=== PATIENT | male | born 1945 | race Caucasian/White ===

== ENCOUNTER 2024-11-06 14:10 | Outpatient (AMB) | payer MEDICARE, SELFPAY | END 2024-11-06 14:21 | disposition home or self-care (01) | PROVIDERS: Visit Provider Registered Nurse Emergency | DX: J30.89 Other allergic rhinitis (principal) | CPT/HCPCS: 95117; 95165 ==

== ENCOUNTER 2024-11-26 10:29 | Outpatient (AMB) | payer MEDICARE, SELFPAY | END 2024-11-26 10:50 | disposition home or self-care (01) | LOC: HO.HMGAL 10:29 | PROVIDERS: Visit Provider Registered Nurse Emergency | DX: J30.89 Other allergic rhinitis (principal) | CPT/HCPCS: 95117; 95165 ==

== ENCOUNTER 2024-12-12 10:46 | Outpatient (AMB) | payer MEDICARE, SELFPAY | END 2024-12-12 10:59 | disposition home or self-care (01) | LOC: HO.HMGAL 10:46 | PROVIDERS: PCP Internal Medicine Rheumatology; Visit Provider Registered Nurse Emergency | DX: J30.89 Other allergic rhinitis (principal) | CPT/HCPCS: 95117; 95165 ==

== ENCOUNTER 2024-12-24 10:54 | Outpatient (AMB) | payer MEDICARE, SELFPAY | END 2024-12-24 11:01 | disposition home or self-care (01) | LOC: HO.HMGAL 10:54 | PROVIDERS: PCP Internal Medicine Rheumatology; Visit Provider Registered Nurse Emergency | DX: J30.89 Other allergic rhinitis (principal) | CPT/HCPCS: 95117; 95165 ==

== ENCOUNTER 2025-01-21 09:33 | Outpatient (AMB) | payer MEDICARE, SELFPAY | END 2025-01-21 09:34 | disposition home or self-care (01) | LOC: HO.HMGAL 09:33 | PROVIDERS: PCP Internal Medicine Rheumatology; Visit Provider Registered Nurse Emergency | DX: J30.89 Other allergic rhinitis (principal) | CPT/HCPCS: 95117; 95165 ==

== ENCOUNTER 2025-02-11 09:27 | Outpatient (AMB) | payer MEDICARE, SELFPAY | END 2025-02-11 09:28 | disposition home or self-care (01) | LOC: HO.HMGAL 09:27 | PROVIDERS: PCP Internal Medicine Rheumatology; Visit Provider Registered Nurse Emergency | DX: J30.89 Other allergic rhinitis (principal) | CPT/HCPCS: 95117; 95165 ==

== ENCOUNTER 2025-03-04 10:52 | Outpatient (AMB) | payer MEDICARE, SELFPAY | END 2025-03-04 10:53 | disposition home or self-care (01) | LOC: HO.HMGAL 10:52 | PROVIDERS: PCP Internal Medicine Rheumatology; Visit Provider Registered Nurse Emergency | DX: J30.89 Other allergic rhinitis (principal) | CPT/HCPCS: 95117; 95165 ==